=== PATIENT | male | born 1990 | race Caucasian/White ===

== ENCOUNTER 2019-04-07 07:12 | Day surgery (SDC) | payer OTHER ==
[~2019-04-07] VITALS: Ht 170.2 cm; Wt 90.2 kg
[~2019-04-07 07:12] MED LIST: pantoprazole
[2019-04-07 08:06] VITALS: BP 122/70; PULSE 71; RESP 18; Ht 170.2 cm; Wt 90.2 kg
[2019-04-07] MEDS ORDERED: LIDOCAINE 4% SOLUTION 50 ML BTL ONE (08:23)
[2019-04-07] MEDS ORDERED: MIDAZOLAM 1 MG/ML 2 ML INJ ONE ×2 (09:13)
[2019-04-07] MEDS ORDERED: FENTAnyl 50 MCG/ML VIAL ONE (09:14)
[2019-04-07 09:18] VITALS: BP 114/66; PULSE 78; RESP 18
== END 2019-04-07 12:23 | disposition home or self-care (01) ==
LOC: GIL 07:12
PROVIDERS: ATTEND Internal Medicine Gastroenterology
DX: K20.9 Esophagitis, unspecified (principal); K44.9 Diaphragmatic hernia without obstruction or gangrene; K29.70 Gastritis, unspecified, without bleeding
CPT/HCPCS: 43239; 88305; 88312; 88313; J2250; J3010; Z7610